=== PATIENT | male | born 1990 | race Caucasian/White ===

== ENCOUNTER 2016-11-12 20:34 | Emergency (ER) | payer OTHER ==
[~2016-11-12] VITALS: Ht 172.7 cm; Wt 68.2 kg
[~2016-11-12 20:34] MED LIST: PREDNISONE20 MG PO; PROAIR HFA8.5 GM IH; ZITHROMAX Z-PA250 MG PO
[2016-11-12 21:29] LABS: HEMATOCRIT 44.5 % (38.0-50.0); MCHC 35.3 G/DL (30.0-36.0); MCV 87.9 FL (86-99); MEAN PLAT.VOLUME 9.6 uM^3 (9.0-12.4); PLATELET COUNT 280 K/uL (156-360); RBC DIS.WIDTH-CV 12.9 % (11.8-14.6); RBC DIS.WIDTH-SD 40.7 % (39-53); RED BLOOD COUNT 5.06 M/uL (4.00-5.50); WHITE BLOOD COUNT 7.6 K/uL (4.1-10.2)
[2016-11-12 21:36] LABS: ADD MIUA? NO; BILIRUBIN NEGATIVE; BLOOD NEGATIVE; COLOR YELLOW ((YELLOW)); GLUCOSE (STRIP) NEGATIVE; KETONES NEGATIVE; LEUKOCYTES NEGATIVE; NITRITE NEGATIVE; PROTEIN (STRIP) NEGATIVE; SPECIFIC GRAVITY 1.012 (1.000-1.030); UCUL ADDED? NO; UROBILINOGEN 0.2 MG/DL (0.2-1.0)
[2016-11-12 21:44] LABS: CHLORIDE 106 mEq/L (99-109); POTASSIUM 4.6 mEq/L (3.7-5.4); SODIUM 143 mEq/L (136-147)
[2016-11-12 21:46] LABS: GLUCOSE 94 mg/dL (70-99)
[2016-11-12 21:47] LABS: ANION GAP 11 MEQ/L (2-14)
[2016-11-12 21:48] LABS: TOTAL BILIRUBIN 0.6 mg/dL (0.0-1.0)
[2016-11-12 21:50] LABS: ALKALINE PHOSPHATASE 56 IU/L (3-129); GFR ESTIMATE (CALCULATED) > 59 mL/min/
[2016-11-12 21:51] LABS: UREA NITROGEN (BUN) 11 mg/dL (9-23)
[2016-11-12 23:01] LABS: CREATINE KINASE 153 IU/L (1-294); LIPASE 15 U/L (1.0-51.0)
[2016-11-12] MEDS ORDERED: MIRALAX255 GM PO (23:56)
[2016-11-13 00:14] VITALS: BP 138/88
== END 2016-11-13 00:16 | disposition home or self-care (01) ==
LOC: RME 20:34 → EME 20:34 → RME 11-13 00:16
DX: R10.30 Lower abdominal pain, unspecified (principal); R25.2 Cramp and spasm; K59.00 Constipation, unspecified; R06.00 Dyspnea, unspecified; N50.811 Right testicular pain; N50.812 Left testicular pain; R82.99 Other abnormal findings in urine; R20.0 Anesthesia of skin; F17.200 Nicotine dependence, unspecified, uncomplicated
CPT/HCPCS: 74176; 80053; 81003; 82550; 83690; 85027; 99281; 99283